=== PATIENT | male | born 1980 | race Two or more races ===

== ENCOUNTER 2022-05-05 14:59 | Emergency (ER) | payer BC ==
[2022-05-05] MEDS ORDERED: Tetracaine HCl/PF 0.5% 4 ML Bottle EYEBOTH ONE (15:30)
== END 2022-05-05 16:34 | disposition home or self-care (01) ==
LOC: MW.ED 14:59
DX: H16.002 Unspecified corneal ulcer, left eye (principal)
CPT/HCPCS: 99283